=== PATIENT | male | born 1960 | race Caucasian/White ===

== ENCOUNTER 2017-10-06 19:40 | Inpatient (IN) ==
[2017-10-06] MEDS ORDERED: Sodium Chlor 0.9% Inj 500 ML IV.SIG ONE (21:18)
[2017-10-06 21:46] VITALS: RESP 16; TEMP 97.8
--- NOTE | 2017-10-06 21:49 | ED ---
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 He reports that he thought that he removed all of it, however an infection then began in the third digit along the dorsum of the digit. He reports that he went to [facility] and had the area lanced between the distal MCP and PIP joint of the third finger. He reports that at that time he was started on clindamycin. The patient reports that he has had his tetanus updated related to this. The patient reports that he followed up again today as he noticed that he had increased swelling, ecchymosis , erythema spreading into the palm of the hand. The patient reports that he has been taking clindamycin 300 mg every 6 hours as prescribed. He went back to [facility] emergency department today and had IV access obtained, at which time vancomycin IV was additionally administered. As a did not have a hand surgeon on-call at their facility the patient was accepted in transfer by the emergency department doctor, Dr. Ibrahim for evaluation at this facility as we do have hand surgery services solutions sales consultant at this facility. The patient reports that prior to having the finger lanced he did have some subjective fevers and chills. He reports that last night he had nausea without vomiting. He denies having any diarrhea. He denies having any chest pain, chest pressure, or shortness of breath. Otherwise on review of systems, the patient reports that last night he did began to have a dry cough, otherwise he denies having any neck pain, abdominal pain, urinary symptoms, or neurologic symptoms. The patient is reportedly right-hand dominant. Related Data Home Medications Medication Instructions Recorded Confirmed No Known Home Medications 10/07/17 10/07/17 Allergies Allergy/AdvReac Type Severity Reaction Status Date / Time ibuprofen Allergy Severe NAUSEA Verified 10/07/17 00:38 Sulfa (Sulfonamide Allergy Severe NAUSEA Verified 10/07/17 00:38 Antibiotics) *MDRO Multi-Drug Resistant AdvReac Unknown NONE Uncoded 10/07/17 00:38 Organism Review of Systems ROS: all other systems reviewed are negative (Except for that which is mentioned in the HPI.) PMFSH History History Provided By: Patient Medical History Medical History Patient denies medical problems (Acute) Surgical History Surgical History H/O inguinal hernia repair (Acute) S/P partial colectomy (Acute) S/P wrist surgery (Acute) Family History Family History Other CAD (coronary artery disease) Diabetes Social History Social History Substance History: No History of Abuse Second Hand Smoke Exposure: Yes Smoking Status: Current every day smoker Tobacco Type: Cigarettes Packs Per Day: 1 Cigarettes Per Day: 20.0 How Often Do You Have a Drink Containing Alcohol: Monthly or less Recent Travel in [facility] within the Last 8 Weeks: No Recent Out of Country Travel within the Last 8 Weeks: No Immunization History Tetanus Immunization: <5 Years Exam Const General: cooperative, no acute distress and well developed Nutritional Appearance: well nourished Orientation: alert, awake and oriented x3 HENMT Head: normocephalic and atraumatic Nose: no nasal discharge and no epistaxis Mouth: moist mucous membranes Throat: posterior oropharynx normal and uvula midline Eyes Sclera: normal sclerae Pupils: PERRL Neck Neck: no meningeal signs, trachea midline and no JVD Resp Effort & Inspection: no use of accessory muscles Auscultation: clear to auscultation bilaterally Cardio Rate: regular rate Rhythm: regular rhythm Heart Sounds: no murmurs GI Inspection: non-distended Palpation: soft, no hepatosplenomegaly and nontender Back/Spine/Pelvis Back: no CVA tenderness Skin General: dry skin (warm) Neuro General: alert, awake and oriented x3 Cranial Nerves: other (No facial asymmetry.) Speech: speech normal Motor: no movement abnormalities noted Sensory Exam: no sensory deficits noted Extrem General: normal to inspection (Except in the left hand.), no clubbing, no cyanosis and edema (Upper extremity related to the area of infection.) Laterality: on the left Right upper extremity: hand Details: abnormal to inspection, normal capillary refill, neuromotor exam normal (Except with touching thumb to pinky. The patient has decreased range of motion with this. He reports that he did have a left wrist injury that affects his range of motion.), tenderness Location: of the dorsal hand (Overlying the third and second metacarpal.), warmth, swelling, ecchymosis and other (On examination of the left hand, the patient is noted to have erythema, ecchymosis involving the area between the distal third MCP and the PIP joint with decreased range of motion related to swelling overlying this area. There is an area that was lanced in the center of the dorsum of this finger at this site that has a purulent drainage noted. This was cultured at the other facility. The patient is additionally noted to have tenderness and swelling extending along the dorsum of the hand at the base of the second third digit overlying the distal metacarpal without any crepitus. The patient on the palmar surface of the hand is noted to have erythema, swelling, tenderness along the base of the second and third digit in the palm.); abnormal to inspection Psych Mood: congruent mood Affect: normal affect Judgment: judgment good Course Consultations Consultation #1: The patient's case including history and pertinent physical examination findings were discussed with Dr. Donahue. He explained that he would see the patient in consultation in the morning. Time: 21:48 Consultation #2: The patient's case including history, pertinent physical examination findings, and laboratory studies were discussed with Dr. Parra. It was agreed that the patient would be admitted to the hospitalist service. Initial Documented Vital Signs Temperature 97.8 F 10/06/17 20:01 Pulse Rate 69 10/06/17 20:01 Respiratory Rate 16 10/06/17 20:01 Blood Pressure 176/85 H 10/06/17 20:01 Pulse Oximetry 98 10/06/17 20:01 Last Documented Vital Signs Temperature 97.8 F 10/06/17 20:01 Pulse Rate 89 10/07/17 01:33 Respiratory Rate 16 10/07/17 01:33 Blood Pressure 121/66 10/07/17 01:33 Pulse Oximetry 98 10/06/17 21:18 Medical Decision Making MDM Narrative Medical decision making narrative: During the course of the patient's emergency department visit, the patient's history, examination, and differential diagnosis were reviewed with the patient. The patient was placed on a equipment monitor phototypesetting with oximetry and frequent blood pressure monitoring. The patient had IV access obtained and blood work sent for analysis. A diagnostic evaluation was started regarding this patient's cellulitis associated with abscess formation along the dorsum of the third digit. The patient's tetanus is reportedly up-to-date. The patient has been on clindamycin and took his usual doses earlier today. He also received vancomycin at [place] emergency department prior to arrival. The patient was initially provided normal saline IV fluids at 125 an hour. The patient will be given Zosyn 3.375 g IV. The patient's diagnostic evaluation was remarkable for a white count of 11.5, platelets 214, neutrophil percent 71. PT 9.7, PTT 29.9, chemistry is remarkable for a GFR of 80, lactic acid is 0.5, lipase 166, magnesium 2.2. A wound culture was done at this facility from the patient's left third digit. The patient's results were discussed with the patient, including the plan of care. I explained that further testing and/ or monitoring is indicated based on the patient's history, examination, and/ or laboratory findings. Therefore, I recommended admission for additional evaluation. The patient expressed understanding and was agreeable with this plan. The patient was admitted to the hospital in guarded condition and sent to a bed under the care of the [facility] service. Differential Diagnosis Differential Diagnosis: Cellulitis, versus abscess, versus tenosynovitis, versus deep palmar infection Medical Records Medical records reviewed: Yes I reviewed the patient's medical records. Lab Data Lab results reviewed: Yes I reviewed the patient's lab results. Result diagrams: 10/06/17 22:15 10/06/17 22:15 Lab Results 10/06/17 10/06/17 10/06/17 Range/Units 22:15 22:15 22:15 WBC 11.5 H (4.0-11.0) th/mm3 RBC 3.94 L (4.50-5.90) mil/mm3 Hgb 12.2 L (13.0-17.0) gm/dL Hct 35.3 L (39.0-51.0) % MCV 89.7 (80.0-100.0) fL MCH 31.0 (27.0-34.0) pg MCHC 34.6 (32.0-36.0) % RDW 14.7 (11.6-17.2) % Plt Count 214 (150-450) th/mm3 MPV 8.4 (7.0-11.0) fL Neut % (Auto) 71.0 H (16.0-70.0) % Lymph % (Auto) 19.1 (9.0-44.0) % Perkins % (Auto) 7.2 (0.0-8.0) % Eos % (Auto) 2.0 (0.0-4.0) % Baso % (Auto) 0.7 (0.0-2.0) % Neut # (Auto) 8.1 H (1.8-7.7) th/mm3 Lymph # (Auto) 2.2 (1.0-4.8) th/mm3 Perkins # (Auto) 0.8 (0.0-0.9) th/mm3 Eos # (Auto) 0.2 (0.0-0.4) th/mm3 Baso # (Auto) 0.1 (0.0-0.2) th/mm3 WBC Differential . Differential Comment Auto diff final PT 9.7 L (9.8-11.6) sec INR 1.0 Ratio APTT 29.9 (24.3-30.1) sec Sodium 141 (136-145) meq/L Potassium 3.7 (3.5-5.1) meq/L Chloride 104 (98-107) meq/L Carbon Dioxide 28.0 (21.0-32.0) meq/L Anion Gap 9 (5-15) meq/L BUN 9 (7-18) mg/dL Creatinine 0.96 (0.60-1.30) mg/dL Estimated GFR 80 L (>89) mL/min Random Glucose 85 (74-106) mg/dL Lactic Acid (0.4-2.0) mmol/L Calcium 9.3 (8.5-10.1) mg/dL Magnesium 2.2 (1.5-2.5) mg/dL Total Bilirubin 0.3 (0.2-1.0) mg/dL AST 17 (15-37) U/L ALT 22 (12-78) U/L Alkaline Phosphatase 77 (45-117) U/L Total Protein 7.7 (6.4-8.2) g/dL Albumin 3.4 (3.4-5.0) g/dL Lipase 166 (73-393) U/L 10/06/17 Range/Units 22:15 WBC (4.0-11.0) th/mm3 RBC (4.50-5.90) mil/mm3 Hgb (13.0-17.0) gm/dL Hct (39.0-51.0) % MCV (80.0-100.0) fL MCH (27.0-34.0) pg MCHC (32.0-36.0) % RDW (11.6-17.2) % Plt Count (150-450) th/mm3 MPV (7.0-11.0) fL Neut % (Auto) (16.0-70.0) % Lymph % (Auto) (9.0-44.0) % Perkins % (Auto) (0.0-8.0) % Eos % (Auto) (0.0-4.0) % Baso % (Auto) (0.0-2.0) % Neut # (Auto) (1.8-7.7) th/mm3 Lymph # (Auto) (1.0-4.8) th/mm3 Perkins # (Auto) (0.0-0.9) th/mm3 Eos # (Auto) (0.0-0.4) th/mm3 Baso # (Auto) (0.0-0.2) th/mm3 WBC Differential Differential Comment PT (9.8-11.6) sec INR Ratio APTT (24.3-30.1) sec Sodium (136-145) meq/L Potassium (3.5-5.1) meq/L Chloride (98-107) meq/L Carbon Dioxide (21.0-32.0) meq/L Anion Gap (5-15) meq/L BUN (7-18) mg/dL Creatinine (0.60-1.30) mg/dL Estimated GFR (>89) mL/min Random Glucose (74-106) mg/dL Lactic Acid 0.5 (0.4-2.0) mmol/L Calcium (8.5-10.1) mg/dL Magnesium (1.5-2.5) mg/dL Total Bilirubin (0.2-1.0) mg/dL AST (15-37) U/L ALT (12-78) U/L Alkaline Phosphatase (45-117) U/L Total Protein (6.4-8.2) g/dL Albumin (3.4-5.0) g/dL Lipase (73-393) U/L Discharge Plan Discharge Disposition Patient Disposition: 30 Still Patient Discharge Details Diagnosis: Cellulitis and abscess of hand Physicians Team ED Provider: Chary Hawkins Primary Care Provider: Primary Care Tracie Lamar Attending Provider: Lyndsay Garcia Discharge Interventions Interventions: Vital Signs Last Done: 10/07/17 00:05 Status ED Status: Admitted Patient
[2017-10-06] MEDS ORDERED: Piperacil/Tazo 3.375 GM Premix 50 ML IV.SIG ONE (21:58)
[2017-10-06 22:29] LABS: Baso # (Auto) 0.1 th/mm3 (0.0-0.2); Baso % (Auto) 0.7 % (0.0-2.0); Eos # (Auto) 0.2 th/mm3 (0.0-0.4); Hematocrit 35.3 % (39.0-51.0); Hemoglobin 12.2 gm/dL (13.0-17.0); Lymph # (Auto) 2.2 th/mm3 (1.0-4.8); Lymph % (Auto) 19.1 % (9.0-44.0); Mean Corpuscular HGB Conc 34.6 % (32.0-36.0); Mean Corpuscular Volume 89.7 fL (80.0-100.0); Mean Platelet Volume 8.4 fL (7.0-11.0); Mono # (Auto) 0.8 th/mm3 (0.0-0.9); Mono % (Auto) 7.2 % (0.0-8.0); Neut # (Auto) 8.1 th/mm3 (1.8-7.7); Platelet Count 214 th/mm3 (150-450); Red Blood Count 3.94 mil/mm3 (4.50-5.90); Red Cell Distribution Width 14.7 % (11.6-17.2); White Blood Count 11.5 th/mm3 (4.0-11.0)
[2017-10-06 22:42] LABS: Activated Partial Thrombo Time 29.9 sec (24.3-30.1); Prothrombin Time 9.7 sec (9.8-11.6)
[2017-10-06 22:46] LABS: Alanine Aminotransferase 22 U/L (12-78); Albumin 3.4 g/dL (3.4-5.0); Anion Gap 9 meq/L (5-15); Aspartate Aminotransferase 17 U/L (15-37); Blood Urea Nitrogen 9 mg/dL (7-18); Calcium 9.3 mg/dL (8.5-10.1); Chloride 104 meq/L (98-107); Glomerular Filtration Rate 80 mL/min (>89); Glucose,Random 85 mg/dL (74-106); Lipase 166 U/L (73-393); Magnesium 2.2 mg/dL (1.5-2.5); Potassium 3.7 meq/L (3.5-5.1); Sodium 141 meq/L (136-145)
[2017-10-06 22:49] LABS: Alkaline Phosphatase 77 U/L (45-117); Total Protein 7.7 g/dL (6.4-8.2)
[2017-10-07] MEDS: Sod Chloride 0.9% Inj 1,000 ML IV.CONT SCH ×2 (00:39→05:50)
[2017-10-07] MEDS ORDERED: Temazepam 15 MG Capsule PO PRN (01:33)
[2017-10-07] MEDS ORDERED: Bisacodyl 10 MG Supp RECTAL PRN (01:33)
[2017-10-07] MEDS ORDERED: Acetaminophen 325 MG Tablet PO PRN (01:33)
[2017-10-07] MEDS ORDERED: Vancomycin Inj 1 GM/200 ML PIGGYBACK IV.SIG SCH (02:00)
[2017-10-07] MEDS ORDERED: Vancomycin Consult Pharmacy 1 EACH OTHER SCH (02:00)
[2017-10-07] MEDS ORDERED: Vancomycin Inj 1,750 MG in Sodium Chlor 0.9% Inj 500 ML IV.SIG ONE (03:00)
--- NOTE | 2017-10-07 04:49 | P.HP ---
History of Present Illness Service: [facility] Primary Care Physician: No Primary Care Physician History of Present Illness: 57-year-old male with no significant past medical history (patient does not see a doctor on a regular basis) presents to the emergency department for the evaluation of left third digit infection. The patient reports that on he got fiberglass into that area of his hand. He reports waking up on Thursday with a small pustule. He reports that by Thursday his entire hand was swollen in the finger was greatly enlarged and painful, warm and red. He went to [facility] that day where his finger was lanced and he was given clindamycin. The patient reports that his hand became significantly worse today and he returned to [facility] for further evaluation. [facility] transferred him to [facility] because they did not have a hand surgeon on-call. He denies any associated fever/chills or systemic symptoms. Inpatient Certification: I certify that the inpatient services were ordered in accordance with Medicare regulations governing the order. This includes certification that hospital inpatient services are reasonable and necessary and in the case of services not specified as inpatient-only under 42 CFR 419.22(n), that they are appropriately provided as inpatient services in accordance to with the 2-midnight benchmark under 43 CFR 412.3(e) Estimated Total Length of Stay (Days): 2 Plans for Post Hospital Care: Not yet determined Review of Systems Denies fever or chills Denies blurry vision, otorrhea, rhinorrhea Denies sore throat and cough No chest pain, palpitations No shortness of breath or wheezing No abdominal pain Denies constipation/diarrhea/nausea/vomiting Denies muscle pain Denies focal weakness No rashes PMFSH - History History Provided By: Patient - Medical History Medical History: Medical History (Last Updated 10/06/17 @ 21:43 by Chary Hawkins MD) Patient denies medical problems - Surgical History Surgical History: Surgical History (Last Updated 10/06/17 @ 21:44 by Chary Hawkins MD) H/O inguinal hernia repair S/P partial colectomy S/P wrist surgery - Family History Family History: Family History (Last Updated 10/07/17 @ 04:45 by Pamela Parra MD) Other CAD (coronary artery disease) Diabetes - Tobacco History Second Hand Smoke Exposure: Yes Tobacco Use In Past 30 Days: Yes Smoking Status: Current every day smoker Tobacco Type: Cigarettes Packs Per Day: 1 Cigarettes Per Day: 20.0 - Alcohol History How Often Do You Have a Drink Containing Alcohol: Monthly or less - Substance Use History Substance History: No History of Abuse - Travel History Recent Travel in the [place] Within the Last 8 Weeks: No Recent Travel Out of the Country Within the Last 8 Weeks: No - Immunization History Tetanus Immunization: <5 Years Tetanus Immunization Year if Known: 2018 Medications and Allergies Active Medications: Active Medications Acetaminophen (Tylenol) 650 mg PO Q4H PRN PRN Reason: Temp > 100.4 Al Hydroxide/Mg Hydroxide (Milk Of Magnesia Liq) 30 ml PO Q12H PRN PRN Reason: Mild Constipation Bisacodyl (Dulcolax Supp) 10 mg RECTAL DAILY PRN PRN Reason: SEVERE CONSITIPATION Sodium Chloride (Ns Inj) 1,000 mls @ 125 mls/hr IV.CONT .Q8H [facility] Last Admin: 10/07/17 00:39 Dose: 125 mls/hr Pharmacy Profile Note (Vancomycin Consult Pharmacy) 0 mls @ 0 mls/hr OTHER UNSCH [facility] Piperacillin/Tazobactam/Dextrose (Zosyn 3.375 Gm Premix) 50 mls @ 100 mls/hr IV.SIG Q6H [facility] Vancomycin HCl 1,750 mg/ (Sodium Chloride) 535 mls @ 267.5 mls/hr IV.SIG ONCE ONE Stop: 10/07/17 04:59 Last Admin: 10/07/17 04:21 Dose: 267.5 mls/hr Lactulose (Lactulose Liq) 30 ml PO DAILY PRN PRN Reason: SEVERE CONSITIPATION Morphine Sulfate (Morphine Inj) 4 mg IV.PUSH Q4H PRN PRN Reason: pain 6-10 Ondansetron HCl (Zofran Inj) 4 mg IV.PUSH Q6H PRN PRN Reason: NAUSEA OR VOMITING Senna/Docusate Sodium (Kalpana-Colace) 1 tab PO BID [facility] Sennosides (Senokot) 17.2 mg PO Q12H PRN PRN Reason: Moderate Constipation Temazepam (Restoril) 15 mg PO HS PRN PRN Reason: INSOMNIA Allergies Allergy/AdvReac Type Severity Reaction Status Date / Time ibuprofen Allergy Severe NAUSEA Verified 10/07/17 00:38 Sulfa (Sulfonamide Allergy Severe NAUSEA Verified 10/07/17 00:38 Antibiotics) *MDRO Multi-Drug Resistant AdvReac Unknown NONE Uncoded 10/07/17 00:38 Organism Home Medications Medication Instructions Recorded Confirmed Type No Known Home Medications 10/07/17 10/07/17 History Exam Vital signs: Vital Signs 10/06/17 20:01 10/06/17 21:18 Temperature 97.8 F Pulse Rate 69 Respiratory Rate 16 Blood Pressure 176/85 H Pulse Oximetry 98 98 Intake & Output 10/06/17 10/06/17 10/07/17 06:59 18:59 06:59 Weight 89.9 kg Narrative: Gen.: No acute distress Head: Normocephalic. Atraumatic. EENT: Pupils equal round and reactive to light. Nose without drainage. Airway intact. Throat without injection. Cardiovascular: Regular rate and rhythm. No murmurs, rubs or gallops. Respiratory: Lungs clear to auscultation bilaterally. No wheezes or rhonchi. Abdomen: Soft, nontender, nondistended. No peritoneal signs. Musculoskeletal: No gross deformities. No edema. Skin: Erythema, edema of the third digit of the left hand. Draining purulent material. Neuro: Sensory and motor grossly intact. Cranial nerves II through XII grossly intact. Psych: Appropriate mood and affect Results - Labs CBC & Chem 7: 10/06/17 22:15 10/06/17 22:15 Labs: Laboratory Results - last 24 hr 10/06/17 10/06/17 10/06/17 22:15 22:15 22:15 WBC 11.5 H RBC 3.94 L Hgb 12.2 L Hct 35.3 L MCV 89.7 MCH 31.0 MCHC 34.6 RDW 14.7 Plt Count 214 MPV 8.4 Neut % (Auto) 71.0 H Lymph % (Auto) 19.1 Daggett % (Auto) 7.2 Eos % (Auto) 2.0 Baso % (Auto) 0.7 Neut # (Auto) 8.1 H Lymph # (Auto) 2.2 Daggett # (Auto) 0.8 Eos # (Auto) 0.2 Baso # (Auto) 0.1 WBC Differential . Differential Comment Auto diff final PT 9.7 L INR 1.0 APTT 29.9 Sodium 141 Potassium 3.7 Chloride 104 Carbon Dioxide 28.0 Anion Gap 9 BUN 9 Creatinine 0.96 Estimated GFR 80 L Random Glucose 85 Lactic Acid Calcium 9.3 Magnesium 2.2 Total Bilirubin 0.3 AST 17 ALT 22 Alkaline Phosphatase 77 Total Protein 7.7 Albumin 3.4 Lipase 166 10/06/17 22:15 WBC RBC Hgb Hct MCV MCH MCHC RDW Plt Count MPV Neut % (Auto) Lymph % (Auto) Daggett % (Auto) Eos % (Auto) Baso % (Auto) Neut # (Auto) Lymph # (Auto) Daggett # (Auto) Eos # (Auto) Baso # (Auto) WBC Differential Differential Comment PT INR APTT Sodium Potassium Chloride Carbon Dioxide Anion Gap BUN Creatinine Estimated GFR Random Glucose Lactic Acid 0.5 Calcium Magnesium Total Bilirubin AST ALT Alkaline Phosphatase Total Protein Albumin Lipase Caprini VTE Risk Assessment Caprini VTE Risk Assessment: No/Low Risk (score <= 1) Caprini Risk Assessment Model: Point Value = 1 Point Value = 2 Point Value = 3 Point Value = 5 Age 41-60 Minor surgery BMI > 25 kg/m2 Swollen legs Varicose veins or History of unexplained or recurrent spontaneous Oral contraceptives or hormone replacement Sepsis (< 1 month) Serious lung disease, including pneumonia (< 1 month) Abnormal pulmonary function Acute myocardial infarction Congestive heart failure (< 1 month) History of inflammatory bowel disease Medical patient at bed rest Age 61-74 Arthroscopic surgery Major open surgery (> 45 min) Laparoscopic surgery (> 45 min) Malignancy Confined to bed (> 72 hours) Immobilizing plaster cast Central venous access Age >= 75 History of VTE Family history of VTE Factor V Leiden Prothrombin [id number] Lupus anticoagulant Anticardiolipin antibodies Elevated serum homocysteine Heparin-induced thrombocytopenia Other congenital or acquired thrombophilia Stroke (< 1 month) Elective arthroplasty Hip, pelvis, or leg fracture Acute spinal cord injury (< 1 month) Prophylaxis Regimen: Total Risk Factor Score Risk Level Prophylaxis Regimen 0-1 Low Early ambulation 2 Moderate Order ONE of the following: *Sequential Compression Device (SCD) *Heparin 5000 units SQ BID 3-4 Higher Order ONE of the following medications: *Heparin 5000 units SQ TID *Enoxaparin/Lovenox 40 mg SQ daily (WT < 150 kg, CrCl > 30 mL/min) *Enoxaparin/Lovenox 30 mg SQ daily (WT < 150 kg, CrCl > 10-29 mL/min) *Enoxaparin/Lovenox 30 mg SQ BID (WT < 150 kg, CrCl > 30 mL/min) AND/OR *Sequential Compression Device (SCD) 5 or more Highest Order ONE of the following medications: *Heparin 5000 units SQ TID (Preferred with Epidurals) *Enoxaparin/Lovenox 40 mg SQ daily (WT < 150 kg, CrCl > 30 mL/min) *Enoxaparin/Lovenox 30 mg SQ daily (WT < 150 kg, CrCl > 10-29 mL/min) *Enoxaparin/Lovenox 30 mg SQ BID (WT < 150 kg, CrCl > 30 mL/min) AND *Sequential Compression Device (SCD) Assessment and Plan - Plan Assessment/plan: 1. Cellulitis/abscess of the left third digit now involving most of the hand Vancomycin and Zosyn Morphine Hand surgery consulted, appreciate recommendations FEN N.p.o. NS at 1 25 cc/hour Electrolytes: Monitor and replete as needed
[2017-10-07] MEDS: Morphine Inj 4 MG/ML Vial IV.PUSH PRN ×2 (05:08→10:33)
[2017-10-07] MEDS: Piperacil/Tazo 3.375 GM Premix 50 ML IV.SIG SCH ×2 (05:09→10:33)
[2017-10-07] MEDS ORDERED: Piperacil/Tazo 3.375 GM Premix 50 ML IV.SIG SCH (08:00)
[2017-10-07] MEDS ORDERED: Senna/Docusate Sodium 8.6/50 MG Tablet PO SCH (09:00)
[2017-10-07] MEDS ORDERED: Bupivacaine PF 0.5% Inj 10 ML Vial INFILTRATN ONE (14:06)
[2017-10-07] MEDS ORDERED: Bupivacaine PF 0.25% Inj 10 ML Vial INFILTRATN ONE (15:00)
[2017-10-07 15:42] VITALS: BP 151/78; PULSE 78; O2SAT 98
--- NOTE | 2017-10-07 16:54 | MB ---
cc: Ana Donahue MD DATE: 10/07/2017 REQUESTING PHYSICIAN: The patient is being seen at the request of Dr. Chary Hawkins REASON FOR CONSULTATION: Abscess of left third finger. HISTORY OF PRESENT ILLNESS: The patient is a 57-year-old male who developed an abscess on the dorsal aspect of his left third finger. He was seen at [facility] where a superficial incision was made into the wound and the patient was given intravenous antibiotics. The patient apparently had to return to the hospital as the infection did not improve adequately. He was then transferred to [facility]. He was seen in the emergency room last night. Consultation is requested regarding evaluation and treatment of this patient's finger abscess. SOCIAL HISTORY: The patient is a pack a day smoker. REVIEW OF SYSTEMS: Negative except as related to the present infection. He denies high blood pressure, diabetes, heart disease, kidney disease, liver disease or diseases of infectious etiology. PAST SURGICAL HISTORY: Inguinal hernia repair, partial colectomy and wrist surgery. FAMILY HISTORY: Significant for coronary artery disease and diabetes. ALLERGIES: INCLUDE IBUPROFEN AND SULFA MEDICATIONS. HABITS: The patient indicates that his alcohol consumption is minimal. MEDICATIONS: Listed on the chart. PHYSICAL EXAMINATION: GENERAL: The patient is lying comfortably in bed. EXTREMITIES: Examination of his left hand reveals swelling in the dorsal aspect of the finger with some necrosis of the epidermal tissue and blister formation. There is some pus draining from a small stab incision on the dorsal aspect of his finger. There was some local redness. There was some redness on the palmar side, which is minimally tender. There is evidence of decreased swelling proximal to the wound on the dorsal aspect of the hand. His range of motion is limited due to discomfort and swelling. LABORATORY DATA: There are no culture results available. His white count was 11.5 on admission with 71% neutrophils. His blood sugar was 85. His GFR was 80. His coagulation was normal. The remainder of the labs were normal. IMPRESSION: The patient appears to have an abscess in the dorsal aspect of his left third finger, which needs additional drainage. PLAN: Incision and drainage. The patient understands and accepts risks and complications of the surgery. Ana Donahue MD [facility] , 04:21 PM , 04:33 PM
--- NOTE | 2017-10-07 16:57 | MP ---
cc: Ana Donahue MD DATE OF OPERATION: 10/07/2017 DATE OF OPERATION: 10/07/2017 PREOPERATIVE DIAGNOSIS: Abscess of the left third finger. POSTOPERATIVE DIAGNOSIS: Abscess of the left third finger. PROCEDURE PERFORMED: Incision and drainage of abscess of the left third finger. ANESTHESIA: Local. SURGEON: Dr. Donahue INDICATIONS: A 57-year-old male with persistent abscess of the left third finger after previous drainage. FINDINGS: The patient had significant pocket and the abscess was adequately drained after the procedure was completed. OPERATIVE TIME: 45 minutes. DESCRIPTION OF PROCEDURE: The patient was seen in the emergency room where the operation was performed. The left hand was anesthetized with bupivacaine 0.5% plain using a median nerve block as well as a dorsal nerve block. Once the hand was completely anesthetized, it was prepped with Betadine and draped in the usual sterile fashion. The previous opening which measured approximately 4 mm in length was opened to approximately 1 cm. Several pockets of pus were identified and these were opened. Dorsal skin which was infected was debrided. The wounds were probed, loculations were broken up, and the wound was copiously irrigated with saline after culturing it. Once the effluent was clear, it was packed with 1/2-inch iodoform packing and dressed with a nonstick dressing, 4 x 4s, and Brandan. The patient was then given back to the care of the emergency room staff. The patient was advised that he should remove the packing in the morning and begin soaking it in Betadine and water and dress it with Betadine, wet-to-dry. The patient appeared to be familiar with the protocol and has agreed to do so. He also informed me that he did not want to return to [facility] for followup since he was from just [facility] and he would followup in that area. The patient was advised he could return to see me at any time and all his questions were answered. MD ESPINOZA Gutierrez/ERIK , 04:29 PM , 04:37 PM
--- NOTE | 2017-10-07 17:05 | P.AMA ---
AMA Note - AMA Note AMA Statement: Patient Carlos Luu has decided to leave the hospital against medical advice. This patient has the capacity to refuse care and understands the risks of leaving, including permanent disability and/or , and has had an opportunity to ask questions about his/her condition. The patient has been informed that he/she may return for care at any time, and follow up has been arranged/advised. - AMA Note Discharge Disposition: Left Against Medical Advice
[2017-10-07] MEDS ORDERED: Vancomycin Inj 1,250 MG in Sodium Chlor 0.9% Inj 250 ML IV.SIG SCH (18:00)
--- NOTE | 2017-10-07 22:16 | ECG ---
Date Performed: 10/07/2017 Time Performed: 01:24:58 PTAGE: 57 years EKG: Sinus rhythm INCOMPLETE RIGHT BUNDLE BRANCH BLOCK NONSPECIFIC T-WAVE ABNORMALITY BORDERLINE ECG NO PREVIOUS TRACING DOCTOR: Juancho Velasquez Interpretating Date/Time 10/07/2017 22:12:00
[2017-10-08] MEDS ORDERED: Pharmacy Ordered Lab Info OTHER ONE (17:45)
== END 2017-10-07 16:48 | disposition left against medical advice (07) ==
LOC: NEPE 19:40 → NEDA 23:30
PROVIDERS: ADMIT Hospitalist; ATTEND Hospitalist